=== PATIENT | male | born 1950 | race Caucasian/White ===

== ENCOUNTER 2018-02-02 18:49 | Inpatient (IN) | payer MEDICARE, OTHER ==
[~2018-02-02] VITALS: Ht 175.3 cm; Wt 78.9 kg
[2018-02-02] MEDS ORDERED: MAG HYDROX/AL HYDROX/SIMETH 30 ML UDC PO PRN (23:00)
[2018-02-02] MEDS ORDERED: ACETAMINOPHEN 325 MG TABLET PO PRN (23:00)
[2018-02-02] MEDS ORDERED: LORAZEPAM 0.5 MG TABLET PO PRN (23:00)
[2018-02-02] MEDS ORDERED: TEMAZEPAM 7.5 MG CAPSULE PO PRN (23:00)
[2018-02-02] MEDS ORDERED: MAGNESIUM HYDROXIDE 30 ML UDC PO PRN (23:00)
--- NOTE | 2018-02-02 23:00 | NUR ---
ADMITTING 67 Y/O MALE FROM [facility], ON 5150 HOLD, PER HOLD PATIENT DEMONSTRATING S/S OF BEING DISORIENTED TO TIME AND DATE AND HE WAS DISPLAYING DISORGANIZED BEHAVIOR AND SPEECH. PATIENT ADMITTING DX. PSYCHOSIS AND MEDICAL DX. OF DM, HPTN, BPH, NARCOLEPSY, OVERWEIGHT, GERD, DYSLIPIDEMIA AND PSORIASIS. UPON FACE TO FACE EVALUATION PATIENT APPEARED ALERT,ORIENTED X 2-3, CALM, COOPERATIVE, EASILY AGITATED, HYPERVERBAL, DISORGANIZED, NO SOB, NO ACUTE DISTRESS, BREATHING EVEN AND UNLABORED, DENIES PAIN AND DISCOMFORT. BELONGINGS COLLECTED FOR CONTRABAND CHECKING, PATIENT ATE SNACKS, PATIENT REFUSED TO SIGN ALL THE PAPER WORKS. REFUSED BODY CHECK AND WANTS TO SLEEP. PATIENT IS UNDER THE CARE OF DR. HAMMOND. NOTIFIED HAND STAPLER ANNE TO RECONCILE MEDICATION.
[2018-02-02] MEDS ORDERED: GLIM4TAB2 PO (23:58)
[2018-02-02] MEDS ORDERED: DORZ10DR11 EACHEYE (23:58)
[2018-02-02] MEDS ORDERED: OMEP20CA10 PO (23:58)
[2018-02-02] MEDS ORDERED: BUPR300T54 PO (23:58)
[2018-02-02] MEDS ORDERED: BRIM5DRO EACHEYE (23:58)
[2018-02-02] MEDS ORDERED: TERA1CAP4 PO (23:58)
[2018-02-02] MEDS ORDERED: METF-440 PO (23:58)
[2018-02-02] MEDS ORDERED: LATA2.5D7 EACHEYE (23:58)
[2018-02-02] MEDS ORDERED: ATOR80TA PO (23:58)
[2018-02-03] MEDS ORDERED: MODA200T22 PO (00:21)
[2018-02-03] MEDS ORDERED: OMEG1CAP PO (00:21)
[2018-02-03] MEDS ORDERED: CALC-20 PO (00:21)
[2018-02-03] MEDS ORDERED: ACYC400T PO (00:21)
[2018-02-03 02:11] VITALS: BP 128/79
--- NOTE | 2018-02-03 05:00 | NUR ---
GPS RN NOTE: PATIENT APPEARED CONFUSED, ANXIOUS, DISORGANIZED, BUT REDIRECTABLE AND COOPERATED WITH BODY CHECK. PICTURE DONE. WILL CONTINUE TO MONITOR [id number] FOR SAFETY
[2018-02-03 07:02] LABS: BASOPHILS % (AUTO) 0.4 % (0.0-2.0); EOSINOPHILS % (AUTO) 1.4 % (0.0-6.0); HEMATOCRIT 41 % (39-51); HEMOGLOBIN 14.3 g/dL (13.5-17.5); LYMPHOCYTES # (AUTO) 1.1 /CMM (0.8-4.8); LYMPHOCYTES % (AUTO) 15.2 % (20.0-44.0); MEAN CORPUSCULAR HGB CONC 35 g/dl (31.0-36.0); MEAN CORPUSCULAR VOLUME 92 fL (80-96); MONOCYTES # (AUTO) 0.6 /CMM (0.1-1.30); MONOCYTES % (AUTO) 8.1 % (2.0-12.0); NEUTROPHILS # (AUTO) 5.5 /CMM (1.8-8.9); NEUTROPHILS % (AUTO) 74.9 % (43.0-81.0); PLATELET COUNT (AUTO) 239 /CMM (150-450); RDW COEFFICIENT OF VARIATION 12.8 (11.5-15.0); RED BLOOD CELL COUNT(AUTO) 4.47 MIL/uL (4.5-6.0); WHITE BLOOD COUNT (AUTO) 7.3 K/uL (4.3-11.0)
[2018-02-03 07:14] LABS: ALBUMIN 3.9 g/dL (3.4-5.0); BILIRUBIN,TOTAL 0.5 mg/dL (0.2-1.0); CALCIUM, SERUM 9.3 mg/dL (8.5-10.1); CREATININE 0.6 mg/dL (0.6-1.3); POTASSIUM 4.1 mmol/L (3.5-5.1)
[2018-02-03 07:22] LABS: CHOLESTEROL 265 mg/dL (<200); HDL CHOLESTEROL 64 mg/dL (40-60); LDL 188 mg/dL (0-99); TRIGLYCERIDES 181 mg/dL (30-150)
[2018-02-03 08:04] VITALS: BP 121/61
[2018-02-03] MEDS: QUETIAPINE FUMARATE 25 MG TABLET PO SCH ×2 (12:00→17:36)
[2018-02-03] MEDS: SERTRALINE HCL 25 MG TABLET PO SCH (12:23)
--- NOTE | 2018-02-03 12:23 | NUR ---
GPS/RN PT REFUSED TO TAKE MEDICATIONS OFFERED X3. CHARGE NURSE VERONIKA RN OFFERED WELL AND EXPLAINED THE CONSEQUENCES OF NOT TAKING MEDS.
--- NOTE | 2018-02-03 13:00 | NUR ---
RN-CO: SAULO GARCIA WAS PAGED TO RECONCILE HOME MEDS, AWAITING TO CALL BACK.
[2018-02-03 16:17] VITALS: BP 106/68
[2018-02-03] MEDS: TERAZOSIN HCL 1 MG CAPSULE PO SCH (18:00)
[2018-02-03] MEDS: BRIMONIDINE TARTRATE OPHT SOLN 5 ML BOTTLE EACHEYE SCH (18:51)
--- NOTE | 2018-02-03 19:09 | NUR ---
GPS/RN PT REFUSED 1800 MEDS OFFERED X3
[2018-02-03 20:00] VITALS: BP 126/66
[2018-02-03] MEDS: LATANOPROST EYE DROP 0.005% 2.5 ML BOTTLE EACHEYE SCH (22:00)
[2018-02-03] MEDS: ATORVASTATIN 40 MG TABLET PO SCH (22:00)
--- NOTE | 2018-02-03 22:02 | NUR ---
GPS RN NOTE: PATIENT REFUSED PM MEDICATION, EXPLAINED THE RISK AND BENEFITS X 3 ATTEMPTS, PATIENT STILL REFUSED. NOTED WITH EPISODE OF CONFUSION AND TRYING TO URINATE ON THE FLOOR. REDIRECTED THE PATIENT AND ASSISTED TO THE RESTROOM. WILL CONITNUE TO MONITOR [id number] FOR SAFETY
--- NOTE | 2018-02-03 23:40 | NUR ---
GPS RN NOTE: PATIENT NOTED WITH CONFUSION AND SAT DOWN ON THE FLOOR ON THE HALLWAY. PER PATIENT HE THOUGHT THERE IS A CHAIR. REALITY ORIENTATION PROVIDED AND REDIRECTED THE PATIENT BACK TO THE BED AND SLEEP. NO SIGNIFICANT CHANGE NOTED. WILL CONTINUE TO MONITOR [id number] FOR SAFETY.
[2018-02-04] MEDS: BRIMONIDINE TARTRATE OPHT SOLN 5 ML BOTTLE EACHEYE SCH ×3 (02:00→17:01)
--- NOTE | 2018-02-04 07:43 | NUR ---
GPS RN NOTES PATIENT RECEIVED RESTING INSIDE ROOM, AWAKE, ALERT AND ORIENTED 1-2, VERBALLY RESPONSIVE AND RESPONDS TO VERBAL AND TACTILE STIMULI. BREATHING EVEN AND UNLABORED. NO SOB OR ACUTE DISTRESS NOTED AT THIS TIME. PATIENT DENIES ANY PAIN OR DISCOMFORT. NO CHANGES IN LOC NOTED AT THIS TIME. WILL CONTINUE TO MONITOR. BED LOCKED AND IN LOW POSITION. BILATERAL UPPER SIDE RAILS UP AND LOCKED. CALL LIGHT WITHIN EASY REACH
[2018-02-04 08:21] VITALS: BP 113/74
[2018-02-04] MEDS: CALCIUM CARB 600MG /VIT D 1 EACH TABLET PO SCH ×2 (08:47→17:02)
[2018-02-04] MEDS: QUETIAPINE FUMARATE 25 MG TABLET PO SCH ×2 (08:47→17:02)
[2018-02-04] MEDS: PANTOPRAZOLE 40 MG TABLET.DR PO SCH (08:47)
[2018-02-04] MEDS: ACYCLOVIR 200 MG CAPSULE PO SCH ×3 (08:47→17:02)
[2018-02-04] MEDS: METFORMIN 500 MG TABLET PO SCH ×2 (08:48→17:03)
[2018-02-04] MEDS ORDERED: GLIMEPIRIDE 4 MG TABLET PO SCH (09:00)
--- NOTE | 2018-02-04 09:30 | NUR ---
GPS RN NOTES PLACED CALL TO PHARMACY AND SPOKE WITH MARVA, REQUESTED COSOPT EYE DROPS. AWAITING FOR MEDICATION DELIVERY.
[2018-02-04] MEDS: TIMOLOL MAL/DORZOLAM HCL OPHTH 10 ML BOTTLE EACHEYE SCH ×2 (10:00→17:00)
[2018-02-04] MEDS: SERTRALINE HCL 25 MG TABLET PO SCH (12:05)
[2018-02-04 16:25] VITALS: BP 127/71
[2018-02-04] MEDS: TERAZOSIN HCL 1 MG CAPSULE PO SCH ×2 (17:01→17:06)
[2018-02-04 19:58] VITALS: BP 105/65
[2018-02-04] MEDS: LATANOPROST EYE DROP 0.005% 2.5 ML BOTTLE EACHEYE SCH (21:28)
[2018-02-04] MEDS: ATORVASTATIN 40 MG TABLET PO SCH (21:36)
[2018-02-05] MEDS: BRIMONIDINE TARTRATE OPHT SOLN 5 ML BOTTLE EACHEYE SCH ×3 (02:00→18:04)
[2018-02-05 08:00] VITALS: BP 108/66
[2018-02-05] MEDS: METFORMIN 500 MG TABLET PO SCH ×2 (09:04→18:07)
[2018-02-05] MEDS: PANTOPRAZOLE 40 MG TABLET.DR PO SCH (09:04)
[2018-02-05] MEDS: ACYCLOVIR 200 MG CAPSULE PO SCH ×3 (09:04→18:06)
[2018-02-05] MEDS: CALCIUM CARB 600MG /VIT D 1 EACH TABLET PO SCH ×2 (09:05→18:06)
[2018-02-05] MEDS: QUETIAPINE FUMARATE 25 MG TABLET PO SCH ×2 (09:06→21:20)
[2018-02-05] MEDS: TIMOLOL MAL/DORZOLAM HCL OPHTH 10 ML BOTTLE EACHEYE SCH ×2 (09:11→17:00)
[2018-02-05] MEDS: GLIMEPIRIDE 4 MG TABLET PO SCH (09:25)
[2018-02-05] MEDS: SERTRALINE HCL 25 MG TABLET PO SCH (14:05)
--- NOTE | 2018-02-05 15:17 | NUR ---
Initial Discharge Note: Pt needs placement as home [address] [facility] [phone] is not safe. Pt has had several [employer] reports due to pts hoarding and unsanitary living conditions. Son agrees to pt being placed at a SNF while son arranges cleaning in pts home. SW will help form a safe and proper discharge home in collaboration with .
--- NOTE | 2018-02-05 15:18 | NUR ---
SW spoke with pts son Niraj Mclean [phone] who confirmed pts living conditions were not sanitary and safe. Pts son reported pts apartment being "horrible." Pt also informed SW that pt experiences visual and auditory hallucinations and stated that "entities" are trying to hurt him therefore, not allowing anyone into his home. SW asked pts son how he felt about pt driving and pts son responded with "terrified i fear he will kill someone or himself Im surprised he hasn't caused or been in accident by now." SW informed pts son that MD will be signing a DMV medical evaluation form to revoke pts drivers license. Pt agreed but wanted to make sure SW or MD did not mention to pt that son was agreeing due to fear pt will not speak to son. SW assured pts son that this evaluation will be made based on psychiatrists evaluation of pts behaviors and mental illness and fear of safety.
--- NOTE | 2018-02-05 15:23 | NUR ---
MESSI spoke with Diamond heel caser at [facility] [phone] who provided SW will additional information on pt. Diamond stated that pt has not been complaint with treatment and that that she fears for his safety. Diamond informed SW that pt is not being evicted however is having financial trouble and is receiving financial assistance from [facility] to pay for his rent. Diamond also reported that several APS reports have been made due to pts hoarding and unsanitary living conditions.
--- NOTE | 2018-02-05 15:26 | NUR ---
Mainor Phelan from [facility] [phone] contacted to inform her that pt is connected with DM.
[2018-02-05 16:00] VITALS: BP 109/64
[2018-02-05] MEDS: TERAZOSIN HCL 1 MG CAPSULE PO SCH (18:00)
[2018-02-05 19:40] VITALS: BP 124/72
--- NOTE | 2018-02-05 19:50 | NUR ---
GPS RN NOTE: PATIENT RESTING IN BED, NO ACUTE DISTRESS NOTED. BREATHING EVEN AND UNLABORED, NO SOB NOTED. PATIENT CALM AND COOPERATIVE AT THIS TIME. WILL CONTINUE TO MONITOR.
[2018-02-05] MEDS: ATORVASTATIN 40 MG TABLET PO SCH (21:26)
[2018-02-05] MEDS: LATANOPROST EYE DROP 0.005% 2.5 ML BOTTLE EACHEYE SCH (21:29)
--- NOTE | 2018-02-05 21:45 | NUR ---
GPS RN NOTE: PATIENT REFUSED TO TAKE SEROQUEL ORDERED, INSTRUCTED ON RISK AND BENEFIT, BUT PATIENT CONTINUES TO REFUSE MEDICATIONS. PATIENT WILLING TO TAKE LIPITOR ORDERED. WILL CONTINUE TO MONITOR.
[2018-02-06] MEDS: BRIMONIDINE TARTRATE OPHT SOLN 5 ML BOTTLE EACHEYE SCH ×3 (02:16→18:56)
[2018-02-06 08:00] VITALS: BP 112/65
[2018-02-06] MEDS: METFORMIN 500 MG TABLET PO SCH ×2 (08:33→16:48)
[2018-02-06] MEDS: ACYCLOVIR 200 MG CAPSULE PO SCH ×3 (08:34→16:48)
[2018-02-06] MEDS: QUETIAPINE FUMARATE 25 MG TABLET PO SCH (08:34)
[2018-02-06] MEDS: PANTOPRAZOLE 40 MG TABLET.DR PO SCH (08:34)
[2018-02-06] MEDS: CALCIUM CARB 600MG /VIT D 1 EACH TABLET PO SCH ×2 (08:34→16:48)
[2018-02-06] MEDS: GLIMEPIRIDE 4 MG TABLET PO SCH (08:44)
--- NOTE | 2018-02-06 08:44 | NUR ---
[id number]; CALLED PHARMACY TO CLARIFY GLIMEPIRIDE 4 MG PO ORDER DUE TO UNABLE TO SCAN AND PHARMACY SAID TO ADMINISTER MANUAL.
[2018-02-06] MEDS ORDERED: GLIMEPIRIDE 4 MG TABLET PO SCH (09:00)
[2018-02-06] MEDS: TIMOLOL MAL/DORZOLAM HCL OPHTH 10 ML BOTTLE EACHEYE SCH ×2 (09:33→16:51)
[2018-02-06] MEDS ORDERED: OLANZAPINE 10 MG VIAL IM ONE (10:00)
--- NOTE | 2018-02-06 13:31 | NUR ---
[id number]: PT APPEARS ANXIOUS, RESTLESS, EASILY IRRITABLE, UNCOOPERATIVE, UNABLE TO FOLLOW DIRECTIVES, YELLING, SCREAMING. ESCORTED PT TO ROOM TO DECREASE EXTERNAL NOISES. ENCOURAGE PT TO VERBALIZE EMOTIONS AND CONCERNS. NOTIFIED DR. HAMMOND ABOUT PT'S BEHAVIOR. DR. HAMMOND ORDERED ZYPREXA 5 MG IM. WILL CONTINUE TO MONITOR FOR EFFECTIVENESS OF MEDICATION
--- NOTE | 2018-02-06 14:02 | NUR ---
MESSI faxed referral to [facility] at [address] [facility], [place] [address] fax: [phone].
--- NOTE | 2018-02-06 14:04 | NUR ---
MESSI spoke with pts son Niraj Mclean [phone] who came to visit pt regarding discharge planning to locked SNF per MD's medical advice pts son agrees with discharge plan. Pts son took pts keys to pts home for safety reasons. Pt is aware that son took home keys.
[2018-02-06 16:00] VITALS: BP 111/69
[2018-02-06] MEDS: OLANZAPINE 2.5 MG TABLET PO SCH (16:48)
[2018-02-06] MEDS: DIVALPROEX SODIUM 250 MG TABLET.DR PO SCH (16:48)
[2018-02-06] MEDS: TERAZOSIN HCL 1 MG CAPSULE PO SCH (18:56)
[2018-02-06 20:11] VITALS: BP 94/51
--- NOTE | 2018-02-06 21:00 | NUR ---
ASSES THE PATIENT WITH PRIMARY NURSE ASK QUESTION TO THE PATIENT IF HE HAS ANY PLANNING TO HURT HIM-SELF, PATIENT STATE " WHY HE WOULD KILL HIM-SELF I DON,T EVEN HAVE ANY WEAPONS I WILL NEVER KILL MY SELF" ASK PATIENT TWICE AND PATIENT REPLY I WILL NEVER KILL MY SELF I AM NOT EVEN THINKING ABOUT TO HURT MY SELF OR HURT ANY BODY REPORT TO [employer] LEADER. AND KEEP CHECKING AND MAKING ROUNDS EVERY 15 MINS FOR PATIENT SAFETY.
[2018-02-06] MEDS: ATORVASTATIN 40 MG TABLET PO SCH (21:40)
[2018-02-06] MEDS: LATANOPROST EYE DROP 0.005% 2.5 ML BOTTLE EACHEYE SCH (21:40)
[2018-02-07] MEDS: TIMOLOL MAL/DORZOLAM HCL OPHTH 10 ML BOTTLE EACHEYE SCH ×3 (02:00→17:27)
[2018-02-07] MEDS: BRIMONIDINE TARTRATE OPHT SOLN 5 ML BOTTLE EACHEYE SCH ×3 (03:25→17:28)
[2018-02-07 08:29] VITALS: BP 107/66
[2018-02-07] MEDS: DIVALPROEX SODIUM 250 MG TABLET.DR PO SCH ×3 (09:00→17:00)
[2018-02-07] MEDS: ACYCLOVIR 200 MG CAPSULE PO SCH ×4 (09:00→17:28)
[2018-02-07] MEDS: OLANZAPINE 2.5 MG TABLET PO SCH ×3 (09:00→17:00)
--- NOTE | 2018-02-07 09:30 | NUR ---
REFUSED ZOVIRAX AND PSYCH AM MEDS-DR. HAMMOND MADE AWARE.
[2018-02-07] MEDS: PANTOPRAZOLE 40 MG TABLET.DR PO SCH (09:44)
[2018-02-07] MEDS: CALCIUM CARB 600MG /VIT D 1 EACH TABLET PO SCH ×2 (09:44→17:28)
[2018-02-07] MEDS: METFORMIN 500 MG TABLET PO SCH ×2 (09:44→17:28)
[2018-02-07] MEDS: GLIMEPIRIDE 4 MG TABLET PO SCH (09:59)
--- NOTE | 2018-02-07 10:09 | NUR ---
MESSI faxed CONFIDENTIAL MORBIDITY REPORT to [facility] [phone].
--- NOTE | 2018-02-07 10:32 | NUR ---
MESSI spoke with Diamond case manager specialist at [facility] [phone] regarding pts concern with paying his rent and utility bills, Diamond stated she would visit pt to discuss further.
--- NOTE | 2018-02-07 11:30 | NUR ---
DR. HAMMOND AND Cinthya CAMARILLO OUT PATIENT THERAPIST IN TO SEE PT.
--- NOTE | 2018-02-07 13:30 | NUR ---
[id number] PSYCH MEDS.
--- NOTE | 2018-02-07 15:03 | NUR ---
MESSI met with Diamond psychiatric social worker supervisor at [facility] [phone] and pt to discuss pts concerns regarding rent and past due utility bills. Diamond stated to pt that she would assist pt with concerns once pt was at half-way. MESSI explained to Diamond that due to pt being on a hold legally pt cannot sign any documents including checks. MESSI informed Diamond that rent payments could be arranged once pt is discharged. Diamond understood and proceeded to assuring pt that she would be assisting with his rent.
--- NOTE | 2018-02-07 15:44 | NUR ---
SW left pts fatmata Mckinney [phone] a voicemail message stating that pt will pay for rent once discharged from hospital and that he would be provided with financial assistance by Diamond director of social services at [facility].
[2018-02-07 16:00] VITALS: BP 120/71
[2018-02-07] MEDS: TERAZOSIN HCL 1 MG CAPSULE PO SCH (17:29)
[2018-02-07 20:00] VITALS: BP 115/67
[2018-02-07 20:12] VITALS: BP 115/67
[2018-02-07] MEDS: LATANOPROST EYE DROP 0.005% 2.5 ML BOTTLE EACHEYE SCH (21:27)
[2018-02-07] MEDS: ATORVASTATIN 40 MG TABLET PO SCH (21:28)
[2018-02-08] MEDS: BRIMONIDINE TARTRATE OPHT SOLN 5 ML BOTTLE EACHEYE SCH ×3 (01:48→17:04)
[2018-02-08 06:56] LABS: BASOPHILS % (AUTO) 0.4 % (0.0-2.0); EOSINOPHILS % (AUTO) 1.3 % (0.0-6.0); HEMATOCRIT 40 % (39-51); HEMOGLOBIN 13.9 g/dL (13.5-17.5); LYMPHOCYTES # (AUTO) 1.1 /CMM (0.8-4.8); LYMPHOCYTES % (AUTO) 20.1 % (20.0-44.0); MEAN CORPUSCULAR HGB CONC 35 g/dl (31.0-36.0); MEAN CORPUSCULAR VOLUME 92 fL (80-96); MONOCYTES # (AUTO) 0.5 /CMM (0.1-1.30); MONOCYTES % (AUTO) 8.4 % (2.0-12.0); NEUTROPHILS % (AUTO) 69.8 % (43.0-81.0); PLATELET COUNT (AUTO) 213 /CMM (150-450); RDW COEFFICIENT OF VARIATION 12.4 (11.5-15.0); RED BLOOD CELL COUNT(AUTO) 4.32 MIL/uL (4.5-6.0); WHITE BLOOD COUNT (AUTO) 5.7 K/uL (4.3-11.0)
[2018-02-08 07:06] LABS: CALCIUM, SERUM 9.2 mg/dL (8.5-10.1); CREATININE 0.6 mg/dL (0.6-1.3); POTASSIUM 4.1 mmol/L (3.5-5.1)
[2018-02-08 08:11] LABS: HOMOCYSTEINE, PLASMA 13.1 umol/L (0.0-15.0)
[2018-02-08] MEDS: CALCIUM CARB 600MG /VIT D 1 EACH TABLET PO SCH ×2 (08:32→16:23)
[2018-02-08] MEDS: METFORMIN 500 MG TABLET PO SCH ×2 (08:32→16:23)
[2018-02-08] MEDS: TIMOLOL MAL/DORZOLAM HCL OPHTH 10 ML BOTTLE EACHEYE SCH ×2 (08:32→16:25)
[2018-02-08] MEDS: ACYCLOVIR 200 MG CAPSULE PO SCH ×3 (08:32→16:26)
[2018-02-08] MEDS: GLIMEPIRIDE 4 MG TABLET PO SCH (08:32)
[2018-02-08] MEDS: PANTOPRAZOLE 40 MG TABLET.DR PO SCH (08:32)
[2018-02-08] MEDS: DIVALPROEX SODIUM 250 MG TABLET.DR PO SCH ×2 (08:33→16:23)
[2018-02-08] MEDS: OLANZAPINE 2.5 MG TABLET PO SCH ×2 (08:33→16:24)
[2018-02-08 08:53] VITALS: BP 109/58
--- NOTE | 2018-02-08 12:39 | NUR ---
MESSI contacted pts son Niraj Mclean [phone] to inform him pt was non compliant with medication and MD would be filing a Riese. MESSI also informed pts son that pt will not be discharged home per MD. pts son agrees that pt needs psychiatric help and does not want MD to discharge pt home. Pts son stated pts living conditions are not good and that mental health is getting worse and pt is unable to care for himself safely.
[2018-02-08 16:00] VITALS: BP 104/59
[2018-02-08] MEDS: TERAZOSIN HCL 1 MG CAPSULE PO SCH (17:03)
[2018-02-08 20:00] VITALS: BP 112/66
[2018-02-08] MEDS: ATORVASTATIN 40 MG TABLET PO SCH (21:03)
--- NOTE | 2018-02-08 21:04 | NUR ---
TEMAZEPAM 7.5 MG CAP 1 PO GIVEN.
[2018-02-08] MEDS: LATANOPROST EYE DROP 0.005% 2.5 ML BOTTLE EACHEYE SCH (21:12)
[2018-02-08] MEDS ORDERED: OLANZAPINE 2.5 MG TABLET PO SCH (22:00)
[2018-02-09 08:00] VITALS: BP 110/62
[2018-02-09] MEDS: TIMOLOL MAL/DORZOLAM HCL OPHTH 10 ML BOTTLE EACHEYE SCH (08:34)
[2018-02-09] MEDS: METFORMIN 500 MG TABLET PO SCH (08:37)
[2018-02-09] MEDS: CALCIUM CARB 600MG /VIT D 1 EACH TABLET PO SCH (08:37)
[2018-02-09] MEDS: ACYCLOVIR 200 MG CAPSULE PO SCH ×2 (08:37→12:21)
[2018-02-09] MEDS: GLIMEPIRIDE 4 MG TABLET PO SCH (08:38)
[2018-02-09] MEDS: PANTOPRAZOLE 40 MG TABLET.DR PO SCH (08:39)
[2018-02-09] MEDS: DIVALPROEX SODIUM 250 MG TABLET.DR PO SCH ×2 (08:40→09:00)
[2018-02-09 09:10] VITALS: BP 110/62
[2018-02-09] MEDS ORDERED: DEXTROSE 50%-WATER 50 ML DISP.SYRIN IV PRN (10:30)
[2018-02-09] MEDS: BRIMONIDINE TARTRATE OPHT SOLN 5 ML BOTTLE EACHEYE SCH ×2 (11:13→13:00)
[2018-02-09] MEDS ORDERED: BLOOD SUGAR DIAGNOSTIC 1 EACH STRIP IN SCH (12:00)
--- NOTE | 2018-02-09 12:59 | NUR ---
DR. HAMMOND GAVE AN ORDER TO D/C HOLD AND D/C TO [facility] AND TO CONTINUE SAME MEDS AND TO FOLLOW UP WITH PSYCH AND MEDICAL DOCTORS. PT. WITHOUT DISTRESS, DENIES SUICIDAL AND HOMICIDAL. SECONDARY SCHOOL PRINCIPAL MADE AWARE OF THE DISCHARGE AND SAID OK FOR DISCHARGE AND RECONCILED MEDS. PT. SIGNED THE DISCHARGE PAPERS AND REFUSED FOR SKIN PICTURES. REPORT GIVEN TO JOE OVER THE FACILITY.
--- NOTE | 2018-02-09 13:45 | NUR ---
PT. LEFT THE UNIT WITH BELONGINGS VIA AMBULANCE AND TRANSPORTED VIA A GURNEY. LEFT WITHOUT DISTRESS AND ON STABLE CONDITION. V/S TAKEN: BP 152/82, DE 90, OXYGEN SAT 96%, RR 20.
--- NOTE | 2018-02-09 14:10 | NUR ---
DISCHARGE NOTE: Pt was discharged at 2:00pm to [facility] ([facility]) [address] [facility] [place] [address] P: [phone] via [facility] ambulance trip #[id number] Pt stated "Im glad I can finally leave." Pts mood and affect was anxious and cooperative. Pt denied suicidal/homicidal ideations and denied visual/auditory hallucinations. Pts son Ja [phone] was notified and agreed to discharge plan. Pt will be under the medical care of Emergency Management Director: Dr Lowery Address: [address] [place] [id number] and Psychiatrist: Dr. Emilee Rodney [address] [place] [phone]. The multidisciplinary exitcare form was done, printed, signed, and given to the patient.
--- NOTE | 2018-02-15 11:01 | NUR ---
Britt social service manager at [facility] [phone] contacted SW to request discharge psychiatric note and 5150 hold for initiation of conservatorship. MESSI faxed psychiatric discharge note and 9840 hold to [phone].
== END 2018-02-09 13:45 | DRG 885 ==
LOC: GPS 21:59
PROVIDERS: ADMIT Psychiatry & Neurology Psychosomatic Medicine; ATTEND Psychiatry & Neurology Psychosomatic Medicine
DX: F29 Unspecified psychosis not due to a substance or known physiological condition (principal); F02.80 Dementia in other diseases classified elsewhere, unspecified severity, without behavioral disturbance, psychotic disturbance, mood disturbance, and anxiety; E11.65 Type 2 diabetes mellitus with hyperglycemia; G93.40 Encephalopathy, unspecified; G31.83 Neurocognitive disorder with Lewy bodies; E78.5 Hyperlipidemia, unspecified; G47.419 Narcolepsy without cataplexy; N40.0 Benign prostatic hyperplasia without lower urinary tract symptoms; I10 Essential (primary) hypertension; L40.9 Psoriasis, unspecified; Z91.14 Patient's other noncompliance with medication regimen; Z79.899 Other long term (current) drug therapy; K21.9 Gastro-esophageal reflux disease without esophagitis
CPT/HCPCS: 36415; 70450-TC; 80048-TC; 80053-TC; 80061-TC; 82962-TC; 83090; 83921; 84443-TC; 85025-TC; 87081-TC; 95819-TC; J3490